=== PATIENT | male | born 1940 | race Caucasian/White ===

== ENCOUNTER 2019-11-10 22:57 | Inpatient (IN) ==
[2019-11-10 23:54] LABS: Basophils % 0.2 %; Hematocrit 43.1 % (37.5-50.1); Hemoglobin 14.8 g/dL (12.9-16.9); Immature Granulocytes % 0.7 % (0-4); Lymphocytes # 0.6 K/mcL (0.6-4.6); Lymphocytes % 2.7 %; Mean Corpuscular HGB Conc 34.3 g/dL (31.6-35.5); Mean Corpuscular Hemoglobin 30.5 pg (28.0-33.3); Mean Corpuscular Volume 88.7 fL (83.0-100.0); Mean Platelet Volume 10.9 fL (9.4-12.4); Monocytes # 1.1 K/mcL (0.0-1.3); Monocytes % 4.9 %; Neutrophils # 20.7 K/mcL (1.6-8.9); Platelet Count 249 K/mcL (140-400); Red Blood Count 4.86 M/mcL (4.19-5.50); Red Cell Distribution Width 12.3 % (11.5-14.5); Segmented Neutrophils % 91.5 %; White Blood Count 22.6 K/mcL (4.3-11.1)
[2019-11-11 00:19] LABS: Alanine Aminotransferase 23 Units/L (7-52); Albumin 4.3 g/dL (3.5-5.7); Albumin/Globulin Ratio 1.2 (1.1-2.2); Alkaline Phosphatase 61 Units/L (34-104); Aspartate Amino Transferase 17 Units/L (13-39); BUN/Creatinine Ratio 19 (6-26); Bilirubin,Total 0.9 mg/dL (0.3-1.0); Blood Urea Nitrogen 21 mg/dL (8-23); Calcium 9.5 mg/dL (8.6-10.3); Carbon Dioxide 20 mEq/L (23-29); Chloride 100 mEq/L (98-107); Globulin 3.5 g/dL (2.4-3.5); Glucose 292 mg/dL (70-105); Magnesium 1.4 mg/dL (1.6-2.6); Osmolality,Calculated 294 (280-300); Potassium 4.5 mEq/L (3.5-5.1); Sodium 135 mEq/L (136-145); Total Protein 7.8 g/dL (6.4-8.9); Troponin I 0.05 ng/mL (< 0.04); eGFR For African Americans > 60 (> 60); eGFR For Non-African Americans > 60 (> 60)
[2019-11-11] MEDS ORDERED: *HR* Labetalol 20 MG/4 ML SYRINGE IVP ONE (00:22)
[2019-11-11 00:44] LABS: Bilirubin,Urine Negative (Negative); Blood,Urine Small (Negative); Clarity,Urine Clear (Clear); Color,Urine Light-Yellow (Yellow); Glucose,Urine (UA) >=1000 mg/dL (Normal); Hyaline Casts,Urine Few per lpf (None Seen); Ketones,Urine 10 mg/dL (Negative); Leukocyte Esterase,Urine Negative (Negative); Nitrite,Urine Negative (Negative); PH,Urine 5.5 pH Units (5.0-8.0); Protein,Urine 50 mg/dL (Neg-Trace); RBC,Urine 0-3 per hpf (0-3); Specific Gravity,Urine 1.028 (1.010-1.025); Urobilinogen,Urine Normal (Normal); WBC,Urine 0-3 per hpf (0-3)
[2019-11-11] MEDS ORDERED: Naloxone 0.4 MG/ML INJ IVP PRN (02:22)
[2019-11-11] MEDS ORDERED: Ondansetron 4 MG/2 ML VIAL IVP PRN (02:22)
[2019-11-11 04:25] LABS: Basophils % 0.1 %; Hematocrit 39.7 % (37.5-50.1); Hemoglobin 13.8 g/dL (12.9-16.9); Immature Granulocytes % 0.6 % (0-4); Lymphocytes # 0.8 K/mcL (0.6-4.6); Lymphocytes % 3.7 %; Mean Corpuscular HGB Conc 34.8 g/dL (31.6-35.5); Mean Corpuscular Hemoglobin 31.1 pg (28.0-33.3); Mean Corpuscular Volume 89.4 fL (83.0-100.0); Mean Platelet Volume 11.2 fL (9.4-12.4); Monocytes # 1.1 K/mcL (0.0-1.3); Monocytes % 5.3 %; Neutrophils # 18.6 K/mcL (1.6-8.9); Platelet Count 219 K/mcL (140-400); Red Blood Count 4.44 M/mcL (4.19-5.50); Red Cell Distribution Width 12.4 % (11.5-14.5); Segmented Neutrophils % 90.3 %; White Blood Count 20.6 K/mcL (4.3-11.1)
[2019-11-11 04:30] LABS: Prothrombin Time 11.8 Seconds (9.4-12.1)
[2019-11-11 04:46] LABS: BUN/Creatinine Ratio 20 (6-26); Blood Urea Nitrogen 19 mg/dL (8-23); C-Reactive Protein 119 mg/L (Less than 10); Calcium 9.3 mg/dL (8.6-10.3); Carbon Dioxide 19 mEq/L (23-29); Chloride 101 mEq/L (98-107); Glucose 253 mg/dL (70-105); Magnesium 2.1 mg/dL (1.6-2.6); Osmolality,Calculated 289 (280-300); Phosphorous 1.7 mg/dL (2.7-4.5); Sodium 134 mEq/L (136-145); eGFR For African Americans > 60 (> 60); eGFR For Non-African Americans > 60 (> 60)
[2019-11-11 04:49] LABS: Troponin I 0.07 ng/mL (< 0.04)
[2019-11-11] MEDS: *HR* Enoxaparin 40 MG/0.4 ML SYRINGE SQ SCH (06:12)
[2019-11-11] MEDS: Vancomycin 1,500 MG/265 ML IV.SOLN IVPB SCH (06:12)
[2019-11-11] MEDS ORDERED: Dextrose Gel 15 GM/37.5 ML TUBE PO PRN ×2 (06:28)
[2019-11-11] MEDS ORDERED: *HR* Dextrose 50 % in Water (Vial) 50 ML VIAL IVP PRN (06:28)
[2019-11-11] MEDS ORDERED: D5% in Water 1,000 ML IVC PRN (06:28)
[2019-11-11] MEDS: Furosemide 20 MG TABLET PO SCH (08:00)
[2019-11-11] MEDS: NIFEdipine XL (24 HR) 30 MG TAB.ER.24 PO SCH (08:00)
[2019-11-11] MEDS: lisinopriL 20 MG TABLET PO SCH (08:00)
[2019-11-11] MEDS: Piperacillin/Tazobactam 3.375 GM in 0.9 % Sodium Chloride Mini Bag 100 ML IVPB SCH ×3 (08:00→23:41)
[2019-11-11] MEDS: Insulin LISPRO 300 UNITS/3 ML VIAL SQ SCH ×7 (08:01→20:40)
[2019-11-11] MEDS: Spironolactone 25 MG TABLET PO SCH (08:02)
[2019-11-11] MEDS ORDERED: cefTRIAXone 1,000 MG in Water for inj. (sterile) 10 ML IVP SCH (09:00)
[2019-11-11] MEDS ORDERED: Insulin DETEMIR 100 UNIT/ML X5UNITS SQ SCH (21:00)
[2019-11-12 01:42] LABS: Basophils % 0.3 %; Eosinophils # 0.1 K/mcL (0.0-0.6); Eosinophils % 0.5 %; Immature Granulocytes % 0.4 % (0-4); Lymphocytes % 8.1 %; Mean Corpuscular HGB Conc 33.7 g/dL (31.6-35.5); Mean Corpuscular Hemoglobin 31.1 pg (28.0-33.3); Mean Corpuscular Volume 92.1 fL (83.0-100.0); Mean Platelet Volume 10.9 fL (9.4-12.4); Monocytes # 0.8 K/mcL (0.0-1.3); Monocytes % 6.4 %; Neutrophils # 10.8 K/mcL (1.6-8.9); Platelet Count 166 K/mcL (140-400); Red Cell Distribution Width 12.4 % (11.5-14.5); Segmented Neutrophils % 84.3 %; White Blood Count 12.8 K/mcL (4.3-11.1)
[2019-11-12 01:44] LABS: Hemoglobin 11.8 g/dL (12.9-16.9)
[2019-11-12 02:01] LABS: BUN/Creatinine Ratio 20 (6-26); Blood Urea Nitrogen 25 mg/dL (8-23); Calcium 8.3 mg/dL (8.6-10.3); Carbon Dioxide 21 mEq/L (23-29); Chloride 102 mEq/L (98-107); Glucose 195 mg/dL (70-105); Osmolality,Calculated 286 (280-300); Potassium 3.7 mEq/L (3.5-5.1); Sodium 133 mEq/L (136-145); eGFR For African Americans > 60 (> 60); eGFR For Non-African Americans 56 (> 60)
[2019-11-12 02:20] LABS: Acinetobacter baumannii by PCR Not Detected (Not Detect); Candida albicans by PCR Not Detected (Not Detect); Candida glabrata by PCR Not Detected (Not Detect); Candida krusei by PCR Not Detected (Not Detect); Candida parapsilosis by PCR Not Detected (Not Detect); Candida tropicalis by PCR Not Detected (Not Detect); Enterobacter cloacae Cmplx PCR Not Detected (Not Detect); Enterobacteriaceae by PCR Not Detected (Not Detect); Enterococcus by PCR Not Detected (Not Detect); Escherichia coli by PCR Not Detected (Not Detect); Klebsiella oxytoca by PCR Not Detected (Not Detect); Klebsiella pneumoniae by PCR Not Detected (Not Detect); Proteus by PCR Not Detected (Not Detect); Pseudomonas aeruginosa by PCR Not Detected (Not Detect); Serratia marcescens by PCR Not Detected (Not Detect); Staphylococcus aureus by PCR Not Detected (Not Detect); Staphylococcus by PCR Not Detected (Not Detect); Streptococcus agalactiae(B)PCR Not Detected (Not Detect); Streptococcus by PCR Not Detected (Not Detect); Streptococcus pneumoniae PCR Not Detected (Not Detect); Streptococcus pyogenes (A) PCR Not Detected (Not Detect)
[2019-11-12] MEDS: Vancomycin 1,500 MG/265 ML IV.SOLN IVPB SCH (05:14)
[2019-11-12] MEDS: *HR* Enoxaparin 40 MG/0.4 ML SYRINGE SQ SCH (05:14)
[2019-11-12] MEDS: Spironolactone 25 MG TABLET PO SCH (08:35)
[2019-11-12] MEDS: NIFEdipine XL (24 HR) 30 MG TAB.ER.24 PO SCH (08:35)
[2019-11-12] MEDS: lisinopriL 20 MG TABLET PO SCH (08:35)
[2019-11-12] MEDS: Piperacillin/Tazobactam 3.375 GM in 0.9 % Sodium Chloride Mini Bag 100 ML IVPB SCH (08:35)
[2019-11-12] MEDS: Furosemide 20 MG TABLET PO SCH (08:35)
[2019-11-12] MEDS: Insulin LISPRO 300 UNITS/3 ML VIAL SQ SCH ×7 (08:37→20:07)
[2019-11-12 09:02] LABS: Estimated Average Glucose 183 mg/dl
[2019-11-12] MEDS: cefTRIAXone 2,000 MG in Water for inj. (sterile) 20 ML IVP SCH (11:29)
[2019-11-12] MEDS: Insulin DETEMIR 100 UNIT/ML X5UNITS SQ SCH (20:06)
[2019-11-13 04:00] LABS: Basophils % 0.4 %; Eosinophils # 0.1 K/mcL (0.0-0.6); Eosinophils % 1.5 %; Hematocrit 34.3 % (37.5-50.1); Hemoglobin 11.9 g/dL (12.9-16.9); Immature Granulocytes % 0.2 % (0-4); Lymphocytes # 1.5 K/mcL (0.6-4.6); Lymphocytes % 17.8 %; Mean Corpuscular HGB Conc 34.7 g/dL (31.6-35.5); Mean Corpuscular Hemoglobin 31.5 pg (28.0-33.3); Mean Corpuscular Volume 90.7 fL (83.0-100.0); Mean Platelet Volume 10.8 fL (9.4-12.4); Monocytes # 0.7 K/mcL (0.0-1.3); Monocytes % 8.5 %; Neutrophils # 6.1 K/mcL (1.6-8.9); Platelet Count 196 K/mcL (140-400); Red Blood Count 3.78 M/mcL (4.19-5.50); Red Cell Distribution Width 12.1 % (11.5-14.5); Segmented Neutrophils % 71.6 %; White Blood Count 8.6 K/mcL (4.3-11.1)
[2019-11-13 04:18] LABS: BUN/Creatinine Ratio 23 (6-26); Blood Urea Nitrogen 21 mg/dL (8-23); Calcium 8.7 mg/dL (8.6-10.3); Carbon Dioxide 20 mEq/L (23-29); Chloride 103 mEq/L (98-107); Glucose 170 mg/dL (70-105); Osmolality,Calculated 285 (280-300); Potassium 3.9 mEq/L (3.5-5.1); Sodium 134 mEq/L (136-145); eGFR For African Americans > 60 (> 60); eGFR For Non-African Americans > 60 (> 60)
[2019-11-13] MEDS: Vancomycin 1,250 MG/262.5 ML IV.SOLN IVPB SCH ×3 (05:29→20:50)
[2019-11-13] MEDS: *HR* Enoxaparin 40 MG/0.4 ML SYRINGE SQ SCH (05:29)
[2019-11-13] MEDS: Aspirin Enteric Coated 81 MG Tablet PO SCH (08:50)
[2019-11-13] MEDS: NIFEdipine XL (24 HR) 30 MG TAB.ER.24 PO SCH (08:50)
[2019-11-13] MEDS: Furosemide 20 MG TABLET PO SCH (08:50)
[2019-11-13] MEDS: Spironolactone 25 MG TABLET PO SCH (08:50)
[2019-11-13] MEDS: Insulin LISPRO 300 UNITS/3 ML VIAL SQ SCH ×7 (08:50→20:53)
[2019-11-13] MEDS: lisinopriL 20 MG TABLET PO SCH (09:00)
[2019-11-13] MEDS: cefTRIAXone 2,000 MG in Water for inj. (sterile) 20 ML IVP SCH (12:25)
[2019-11-13] MEDS: Insulin DETEMIR 100 UNIT/ML X5UNITS SQ SCH (20:59)
[2019-11-14 02:07] LABS: Basophils % 0.4 %; Eosinophils # 0.2 K/mcL (0.0-0.6); Eosinophils % 2.5 %; Hematocrit 35.3 % (37.5-50.1); Hemoglobin 11.9 g/dL (12.9-16.9); Immature Granulocytes % 0.3 % (0-4); Lymphocytes # 1.4 K/mcL (0.6-4.6); Lymphocytes % 19.4 %; Mean Corpuscular HGB Conc 33.7 g/dL (31.6-35.5); Mean Corpuscular Hemoglobin 30.6 pg (28.0-33.3); Mean Corpuscular Volume 90.7 fL (83.0-100.0); Monocytes # 0.7 K/mcL (0.0-1.3); Monocytes % 9.6 %; Neutrophils # 4.9 K/mcL (1.6-8.9); Platelet Count 237 K/mcL (140-400); Red Blood Count 3.89 M/mcL (4.19-5.50); Red Cell Distribution Width 11.9 % (11.5-14.5); Segmented Neutrophils % 67.8 %; White Blood Count 7.3 K/mcL (4.3-11.1)
[2019-11-14 02:19] LABS: BUN/Creatinine Ratio 24 (6-26); Blood Urea Nitrogen 21 mg/dL (8-23); Calcium 8.8 mg/dL (8.6-10.3); Carbon Dioxide 23 mEq/L (23-29); Chloride 102 mEq/L (98-107); Glucose 178 mg/dL (70-105); Osmolality,Calculated 285 (280-300); Potassium 4.1 mEq/L (3.5-5.1); Sodium 134 mEq/L (136-145); eGFR For African Americans > 60 (> 60); eGFR For Non-African Americans > 60 (> 60)
[2019-11-14] MEDS: Vancomycin 1,250 MG/262.5 ML IV.SOLN IVPB SCH ×2 (06:36→18:11)
[2019-11-14] MEDS: *HR* Enoxaparin 40 MG/0.4 ML SYRINGE SQ SCH (06:37)
[2019-11-14] MEDS: NIFEdipine XL (24 HR) 30 MG TAB.ER.24 PO SCH (08:00)
[2019-11-14] MEDS: Aspirin Enteric Coated 81 MG Tablet PO SCH (08:01)
[2019-11-14] MEDS: Furosemide 20 MG TABLET PO SCH (08:01)
[2019-11-14] MEDS: lisinopriL 20 MG TABLET PO SCH (08:01)
[2019-11-14] MEDS: Spironolactone 25 MG TABLET PO SCH (08:01)
[2019-11-14] MEDS: Insulin LISPRO 300 UNITS/3 ML VIAL SQ SCH ×7 (08:02→20:22)
[2019-11-14] MEDS: Ampicillin/Sulbactam 3,000 MG in 0.9 % Sodium Chloride Mini Bag 100 ML IVPB SCH ×2 (12:04→17:16)
[2019-11-14] MEDS: Insulin DETEMIR 100 UNIT/ML X5UNITS SQ SCH (20:25)
[2019-11-15] MEDS: Ampicillin/Sulbactam 3,000 MG in 0.9 % Sodium Chloride Mini Bag 100 ML IVPB SCH ×4 (01:10→17:05)
[2019-11-15 02:04] LABS: Basophils % 0.5 %; Eosinophils # 0.2 K/mcL (0.0-0.6); Eosinophils % 3.3 %; Hematocrit 37.5 % (37.5-50.1); Hemoglobin 12.3 g/dL (12.9-16.9); Immature Granulocytes % 0.3 % (0-4); Lymphocytes # 1.5 K/mcL (0.6-4.6); Lymphocytes % 24.1 %; Mean Corpuscular HGB Conc 32.8 g/dL (31.6-35.5); Mean Corpuscular Hemoglobin 29.8 pg (28.0-33.3); Mean Corpuscular Volume 90.8 fL (83.0-100.0); Mean Platelet Volume 11.1 fL (9.4-12.4); Monocytes # 0.6 K/mcL (0.0-1.3); Monocytes % 10.2 %; Neutrophils # 3.7 K/mcL (1.6-8.9); Platelet Count 271 K/mcL (140-400); Red Blood Count 4.13 M/mcL (4.19-5.50); Red Cell Distribution Width 11.9 % (11.5-14.5); Segmented Neutrophils % 61.6 %; White Blood Count 6.1 K/mcL (4.3-11.1)
[2019-11-15 02:22] LABS: BUN/Creatinine Ratio 20 (6-26); Blood Urea Nitrogen 19 mg/dL (8-23); Calcium 8.8 mg/dL (8.6-10.3); Carbon Dioxide 23 mEq/L (23-29); Chloride 101 mEq/L (98-107); Glucose 264 mg/dL (70-105); Osmolality,Calculated 289 (280-300); Potassium 4.1 mEq/L (3.5-5.1); Sodium 134 mEq/L (136-145); eGFR For African Americans > 60 (> 60); eGFR For Non-African Americans > 60 (> 60)
[2019-11-15] MEDS: *HR* Labetalol 20 MG/4 ML SYRINGE IVP PRN (04:30)
[2019-11-15] MEDS: *HR* Enoxaparin 40 MG/0.4 ML SYRINGE SQ SCH (06:29)
[2019-11-15] MEDS: Vancomycin 1,250 MG/262.5 ML IV.SOLN IVPB SCH ×2 (07:04→17:05)
[2019-11-15] MEDS: Aspirin Enteric Coated 81 MG Tablet PO SCH (08:40)
[2019-11-15] MEDS: NIFEdipine XL (24 HR) 30 MG TAB.ER.24 PO SCH (08:40)
[2019-11-15] MEDS: Insulin LISPRO 300 UNITS/3 ML VIAL SQ SCH ×7 (08:41→20:32)
[2019-11-15] MEDS: lisinopriL 20 MG TABLET PO SCH (08:41)
[2019-11-15] MEDS: Spironolactone 25 MG TABLET PO SCH (08:41)
[2019-11-15] MEDS: Furosemide 20 MG TABLET PO SCH (08:41)
[2019-11-15] MEDS: Insulin DETEMIR 100 UNIT/ML X5UNITS SQ SCH (20:30)
[2019-11-16] MEDS: Ampicillin/Sulbactam 3,000 MG in 0.9 % Sodium Chloride Mini Bag 100 ML IVPB SCH ×5 (00:29→23:35)
[2019-11-16] MEDS: Vancomycin 1,250 MG/262.5 ML IV.SOLN IVPB SCH ×2 (05:44→17:49)
[2019-11-16] MEDS: *HR* Enoxaparin 40 MG/0.4 ML SYRINGE SQ SCH (05:45)
[2019-11-16 06:00] LABS: Basophils % 0.4 %; Eosinophils # 0.3 K/mcL (0.0-0.6); Eosinophils % 3.4 %; Hematocrit 36.4 % (37.5-50.1); Hemoglobin 12.3 g/dL (12.9-16.9); Immature Granulocytes % 0.5 % (0-4); Lymphocytes # 1.8 K/mcL (0.6-4.6); Lymphocytes % 23.5 %; Mean Corpuscular HGB Conc 33.8 g/dL (31.6-35.5); Mean Corpuscular Hemoglobin 30.8 pg (28.0-33.3); Mean Platelet Volume 10.8 fL (9.4-12.4); Monocytes # 0.6 K/mcL (0.0-1.3); Monocytes % 7.9 %; Platelet Count 278 K/mcL (140-400); Segmented Neutrophils % 64.3 %; White Blood Count 7.8 K/mcL (4.3-11.1)
[2019-11-16 06:16] LABS: BUN/Creatinine Ratio 18 (6-26); Blood Urea Nitrogen 17 mg/dL (8-23); Calcium 9.1 mg/dL (8.6-10.3); Carbon Dioxide 26 mEq/L (23-29); Chloride 102 mEq/L (98-107); Glucose 228 mg/dL (70-105); Osmolality,Calculated 289 (280-300); Potassium 4.1 mEq/L (3.5-5.1); Sodium 135 mEq/L (136-145); eGFR For African Americans > 60 (> 60); eGFR For Non-African Americans > 60 (> 60)
[2019-11-16] MEDS: lisinopriL 20 MG TABLET PO SCH (07:55)
[2019-11-16] MEDS: NIFEdipine XL (24 HR) 30 MG TAB.ER.24 PO SCH (07:55)
[2019-11-16] MEDS: Aspirin Enteric Coated 81 MG Tablet PO SCH (07:55)
[2019-11-16] MEDS: Spironolactone 25 MG TABLET PO SCH (07:56)
[2019-11-16] MEDS: Furosemide 20 MG TABLET PO SCH (07:56)
[2019-11-16] MEDS: Insulin LISPRO 300 UNITS/3 ML VIAL SQ SCH ×7 (07:57→22:15)
[2019-11-16] MEDS: Insulin DETEMIR 100 UNIT/ML X5UNITS SQ SCH (22:18)
[2019-11-17] MEDS: Ampicillin/Sulbactam 3,000 MG in 0.9 % Sodium Chloride Mini Bag 100 ML IVPB SCH ×4 (05:19→23:24)
[2019-11-17] MEDS: *HR* Enoxaparin 40 MG/0.4 ML SYRINGE SQ SCH (05:20)
[2019-11-17] MEDS: Vancomycin 1,250 MG/262.5 ML IV.SOLN IVPB SCH ×2 (06:11→17:53)
[2019-11-17] MEDS: Insulin LISPRO 300 UNITS/3 ML VIAL SQ SCH ×7 (08:44→21:15)
[2019-11-17] MEDS: Aspirin Enteric Coated 81 MG Tablet PO SCH (08:44)
[2019-11-17] MEDS: Furosemide 20 MG TABLET PO SCH (08:44)
[2019-11-17] MEDS: Spironolactone 25 MG TABLET PO SCH (08:44)
[2019-11-17] MEDS: lisinopriL 20 MG TABLET PO SCH (08:44)
[2019-11-17] MEDS: NIFEdipine XL (24 HR) 30 MG TAB.ER.24 PO SCH ×2 (09:20→17:27)
[2019-11-17] MEDS ORDERED: Aminoglycoside Consult 1 EACH MC ONE (13:57)
[2019-11-17] MEDS: *HR* Labetalol 20 MG/4 ML SYRINGE IVP PRN (21:27)
[2019-11-17] MEDS: Insulin DETEMIR 100 UNIT/ML X5UNITS SQ SCH (21:27)
[2019-11-18] MEDS: Ampicillin/Sulbactam 3,000 MG in 0.9 % Sodium Chloride Mini Bag 100 ML IVPB SCH (06:16)
[2019-11-18] MEDS: *HR* Enoxaparin 40 MG/0.4 ML SYRINGE SQ SCH (06:16)
[2019-11-18 07:49] LABS: BUN/Creatinine Ratio 20 (6-26); Blood Urea Nitrogen 19 mg/dL (8-23); eGFR For African Americans > 60 (> 60); eGFR For Non-African Americans > 60 (> 60)
[2019-11-18] MEDS: Furosemide 20 MG TABLET PO SCH (08:17)
[2019-11-18] MEDS: Aspirin Enteric Coated 81 MG Tablet PO SCH (08:17)
[2019-11-18] MEDS: lisinopriL 20 MG TABLET PO SCH (08:17)
[2019-11-18] MEDS: NIFEdipine XL (24 HR) 30 MG TAB.ER.24 PO SCH (08:17)
[2019-11-18] MEDS: Spironolactone 25 MG TABLET PO SCH (08:17)
[2019-11-18] MEDS: Insulin LISPRO 300 UNITS/3 ML VIAL SQ SCH ×4 (08:18→12:33)
[2019-11-18] MEDS: Vancomycin 1,250 MG/262.5 ML IV.SOLN IVPB SCH (08:33)
[2019-11-18 12:08] VITALS: BP 139/67
== END 2019-11-18 13:58 | disposition home or self-care (01) | DRG 872 ==
LOC: 2ANU 22:57 → EMEROOARM 22:57 → SUATTDRO 11-11 02:28 → 2ANU 11-11 03:08
PROVIDERS: ADMIT Family Medicine; ATTEND Internal Medicine